=== PATIENT | female | born 1990 | race American Indian/Alaskan Native ===

== ENCOUNTER 2020-06-18 18:46 | Outpatient (CLI) | payer OTHER ==
[2020-06-18 19:26] VITALS: BP 116/61
--- NOTE | 2020-06-18 23:47 | Ultrasound Report ---
ULTRASOUND BIOPHYSICAL PROFILE INDICATION: wellness. COMPARISON: None available. FINDINGS: breathing movement = 2 Gross body movement = 2 tone = 2 Qualitative amniotic fluid volume = 2 Total biophysical score = 8/8 IMPRESSION: biophysical profile = 8/8 US OB LIMITED INDICATION / CLINICAL INFORMATION: wellness. COMPARISON: None available. FINDINGS: Amniotic fluid index is 7.1 cm at the lower limits of normal. lie is cephalic. heart rate is 149. IMPRESSION: 1. No acute abnormalities are seen. Amniotic fluid index is at the lower limits of normal. Signer Name: Jose Hyman MD Signed: 06/18/2020 11:43 PM Workstation Name: [id number]
== END 2020-06-18 23:30 | disposition home or self-care (01) ==
LOC: APU 18:46 → TRG 18:46
PROVIDERS: ATTEND Obstetrics & Gynecology
DX: O47.03 False labor before 37 completed weeks of gestation, third trimester (principal); Z3A.34 34 weeks gestation of pregnancy
CPT/HCPCS: 59025; 76815; 76819

== ENCOUNTER 2020-07-25 22:09 | Observation (INO) | payer OTHER ==
[2020-07-26 01:04] LABS: Hematocrit 35.1 % (30.3-42.9); Hemoglobin 11.7 gm/dl (10.1-14.3); Mean Corpuscular HGB Conc 33 % (30-34); Mean Corpuscular Volume 95 fl (79-97); Red Blood Count 3.71 M/mm3 (3.65-5.03); Red Cell Distribution Width 15.6 % (13.2-15.2)
[2020-07-26 01:17] LABS: Platelet Count 88 K/mm3 (140-440)
[2020-07-26 01:20] LABS: Bacteria,Urine 1+ /HPF (Negative); Bilirubin,Urine NEG (Negative); Blood,Urine SM (Negative); Color,Urine Yellow (Yellow); Mucus,Urine 2+ /HPF; Urobilinogen,Urine < 2.0 mg/dL (<2.0)
[2020-07-26 01:22] LABS: Alanine Aminotransferase 10 units/L (7-56)
--- NOTE | 2020-07-26 01:48 | Ultrasound Report ---
ULTRASOUND OBSTETRIC LIMITED ULTRASOUND BIOPHYSICAL PROFILE INDICATION / CLINICAL INFORMATION: wellbeing. COMPARISON: None available. FINDINGS: BREATHING MOVEMENT = 2 GROSS BODY MOVEMENT = 2 TONE = 2 QUALITATIVE AMNIOTIC FLUID VOLUME = 2 TOTAL BIOPHYSICAL SCORE = 8/8 HEART RATE (beats per minute): 141 AMNIOTIC FLUID INDEX (cm) = 9.8 (normal = 7-24 cm) PRESENTATION: Cephalic. ADDITIONAL FINDINGS: None. IMPRESSION: 1. Biophysical Score = 8/8 Signer Name: Walter Delcid MD Signed: 07/26/2020 1:44 AM Workstation Name: [id number]
[2020-07-26 03:19] LABS: Uric Acid 5.5 mg/dL (3.5-7.6)
[2020-07-26] MEDS ORDERED: DOCUSATE SODIUM 100 MG CAP PO PRN (04:13)
[2020-07-26] MEDS ORDERED: ACETAMINOPHEN 325 MG TAB PO PRN (04:13)
--- NOTE | 2020-07-26 08:36 | History and Physical Report ---
History of Present Illness Date of examination: 07/26/20 Date of admission: 07/26/20 04:16 Chief complaint: "I was sent her by the office because of my b/p" History of present illness: 29 y/o presented to [facility] OB triage for b/p monitoring and PIH labs. Pt initiated her pnc early at [employer] [facility] and was sent to the hosp today by same. Pt denied casanova, visual problems or epigastric pain. Reactive NST, BPP 8/8, plt 88, 2+ urine protien. B/ps have been mildly elevated with highest b/p 144/70. Pt is refusing an IOL and has refused all meds. Pt 's mother is a nurse and she has consulted with her. She was placed on obs for further monitoring. No records are available. Will obtain records in am and consult with Dr Enio tompkins pt's POC. Past History Past Medical History: no pertinent history Past Surgical History: no surgical history Family/Genetic History: diabetes, heart disease, hypertension Social history: no significant social history - Obstetrical History Expected Date of Delivery: 07/28/20 Actual Gestation: 39 Week(s) 5 Day(s) : 1 Para: 0 Medications and Allergies Allergies Allergy/AdvReac Type Severity Reaction Status Date / Time No Known Allergies Allergy Verified 05/28/20 20:51 Active Meds: Active Medications Acetaminophen (Tylenol) 650 mg PO Q4H PRN PRN Reason: Pain MILD(1-3)/Fever >100.5/CASANOVA Docusate Sodium (Colace) 100 mg PO Q12H PRN PRN Reason: Constipation Multivitamins/Iron/Calcium ( Vitamin) 1 each PO QDAY [facility] Review of Systems All systems: negative Eyes: deferred Ears, nose, mouth and throat: deferred Breasts: normal Genitourinary: normal appearance Rectal Exam: deferred - Vital Signs Vital signs: Vital Signs Pulse BP Pulse Ox 73 135/77 98 07/25/20 23:05 07/25/20 23:05 07/25/20 23:05 Temp Pulse Resp BP Pulse Ox 98.3 F 86 18 149/71 98 07/26/20 07:31 07/26/20 08:09 07/26/20 04:52 07/26/20 08:09 07/26/20 04:02 - Physical Exam Breasts: Positive: normal Cardiovascular: Regular rate Lungs: Positive: Clear to auscultation Abdomen: Positive: normal appearance, soft, normal bowel sounds Genitourinary (Female): Positive: normal external genitalia, normal perenium Vulva: both: normal Vagina: Positive: normal moisture Uterus: Positive: enlarged, normal contour Adnexa: both: normal Anus/Rectum: Positive: normal perianal skin Extremities: Positive: normal - Obstetrical FHR: auscultation normal, category 1 Uterine Contraction Monitor Mode: External Cervical Dilatation: 3 Cervical Effacement Percentage: 75 station: -3 Uterine Contraction Frequency (min): irreg Uterine Contraction Pattern: Irregular Uterine Tone Measurement Phase: Resting Uterine Contraction Intensity: Mild Results Result Diagrams: 07/26/20 00:28 07/26/20 00:28 Abnormal lab results 07/26/20 Range/Units 00:28 RDW 15.6 H (13.2-15.2) % Plt Count 88 L (140-440) K/mm3 All other labs normal. Assessment and Plan A: IUP@ 39.5 wks Preeclampsia asymptomatic Thrombocytopenia Pt is refusing an IOL and all meds P: Admit for obs Continuous monitoring Discussed Preeclampsia, thrombocytopenia and the induction process in detail Reviewed risk factors for an induction ie abruption, c/s etc Will obtain PNR in am and consult MD tompkins POC - Patient Problems (1) IUP (intrauterine ), incidental Current Visit: Yes Status: Acute (2) Pre-eclampsia Current Visit: Yes Status: Acute (3) Thrombocytopenia Current Visit: Yes Status: Acute
[2020-07-26] MEDS ORDERED: PRENATAL VIT27-FE FUMARATE-FOLIC ACID VIT TAB PO SCH (10:00)
--- NOTE | 2020-07-26 10:11 | Event Note ---
Date: 07/26/20 Patient refusing IOL for preeclampsia with severe features with platelets of 88K with elevated BPs. Hx nl platelets to 377K. Discussed with patient, partner, and mother at length the indication from delivery. Will discuss further and tell treatment team about plan of care.
[2020-07-26] MEDS ORDERED: LACTATED RINGERS 1,000 ML ONE (10:14)
[2020-07-26 11:02] LABS: Basophils % (Auto) 0.3 % (0.0-1.8); Eosinophils # (Auto) 0.1 K/mm3 (0.0-0.4); Eosinophils % (Auto) 1.1 % (0.0-4.3); Hematocrit 34.3 % (30.3-42.9); Hemoglobin 11.4 gm/dl (10.1-14.3); Lymphocytes # (Auto) 1.8 K/mm3 (1.2-5.4); Lymphocytes % (Auto) 24.9 % (13.4-35.0); Mean Corpuscular HGB Conc 33 % (30-34); Mean Corpuscular Volume 94 fl (79-97); Monocytes # (Auto) 0.7 K/mm3 (0.0-0.8); Red Blood Count 3.67 M/mm3 (3.65-5.03); Red Cell Distribution Width 15.6 % (13.2-15.2)
[2020-07-26 11:03] LABS: Platelet Count 96 K/mm3 (140-440)
[2020-07-26 11:13] VITALS: BP 137/81
== END 2020-07-26 11:41 | disposition left against medical advice (07) ==
LOC: TRG 22:09 → APU 22:22 → TRG 07-26 04:13 → LD 07-26 04:16
PROVIDERS: ADMIT Obstetrics & Gynecology; ATTEND Obstetrics & Gynecology
DX: O13.3 Gestational [pregnancy-induced] hypertension without significant proteinuria, third trimester (principal); D69.6 Thrombocytopenia, unspecified; O14.93 Unspecified pre-eclampsia, third trimester; Z3A.39 39 weeks gestation of pregnancy
CPT/HCPCS: 36415; 76815; 76819; 81001; 82565; 83615; 84450; 84460; 84550; 85027; G0378; 85025